=== PATIENT | female | born 1985 | race Caucasian/White ===

== ENCOUNTER 2018-06-17 05:42 | Outpatient (CLI) | payer SELFPAY ==
[~2018-06-17] VITALS: Ht 170.2 cm; Wt 136.1 kg
[2018-06-17] MEDS ORDERED: SERT50TA9 PO (14:08)
[2018-06-17] MEDS ORDERED: OMEP20TA7 PO (14:08)
== END 2018-06-17 14:09 | disposition home or self-care (01) ==
LOC: PREOP 05:42
PROVIDERS: ATTEND Surgery
DX: Z01.818 Encounter for other preprocedural examination (principal)

== ENCOUNTER 2018-06-22 08:11 | Day surgery (SDC) | payer OTHER ==
[~2018-06-22] VITALS: Ht 170.2 cm; Wt 136.1 kg
[~2018-06-22 08:11] MED LIST: OMEP20TA7 PO; SERT50TA9 PO
[2018-06-22] MEDS ORDERED: NS IV 500 ML 500 ML IV PRN (08:26)
[2018-06-22] MEDS ORDERED: fentaNYL INJECTION 100 MCG/2 ML AMP IVP ONE (08:30)
[2018-06-22] MEDS ORDERED: MIDAZOLAM 2 MG/2 ML (VERSED) VIAL IVP ONE (08:30)
[2018-06-22] MEDS ORDERED: NS IV 500 ML 500 ML ONE (08:34)
[2018-06-22 08:45] VITALS: BP 117/78
--- NOTE | 2018-06-22 08:49 | History & Physicial ---
History of Present Illness History of Present Illness Reason for visit/HPI to undergo an upper endoscopy regarding symptoms of gastroesophageal reflux disease Date of Admission 06/22/18 Date Seen by a Provider: Jun 22, 2018 Time Seen by a Provider: 08:48 I consulted on this patient on 06/22/18 08:48 Attending Physician Karely Wrad MD Admitting Physician No,Local Physician Consult Allergies and Home Medications Allergies Coded Allergies: Sulfa (Sulfonamide Antibiotics) (Verified Allergy, Unknown, RASH, 06/17/18) acetaminophen (Verified Allergy, Unknown, headache, 06/17/18) oxycodone (Verified Allergy, Unknown, headache, 06/17/18) Home Medications Omeprazole Unknown Strength Tablet.dr, 1 TAB PO DAILY, (Reported) Sertraline HCl Unknown Strength Tablet, 1 TAB PO DAILY, (Reported) Patient Home Medication List Home Medication List Reviewed: Yes Past Iwvgklo-Ydnzms-Gzxmnl Hx Patient Social History Marrital Status: Alcohol Beverage of Choice: Wine Recent Foreign Travel: No Contact w/other who traveled: No Recent Hopitalizations: No Seasonal Allergies Seasonal Allergies: No Surgeries Yes Tubal Ligation Respiratory No Cardiovascular No Neurological No Reproductive System Hx Reproductive Disorders: No Gastrointestinal Yes Gastroesophageal Reflux Endocrine History of Endocrine Disorders: No Psychosocial Behavioral Health Disorders: Depression Review of Systems Constitutional: no symptoms reported EENTM: no symptoms reported Respiratory: no symptoms reported Cardiovascular: no symptoms reported Gastrointestinal: see HPI Genitourinary: no symptoms reported Musculoskeletal: no symptoms reported Skin: no symptoms reported Psychiatric/Neurological: No Symptoms Reported Physical Exam Vital Signs Capillary Refill : Height, Weight, BMI Height: 5'7.00" Weight: 300lbs. 0.0oz. [id number]; 47.0 BMI Method: General Appearance: No Apparent Distress Neck: Normal Inspection Respiratory: Lungs Clear Cardiovascular: Regular Rate, Rhythm Gastrointestinal: Non Tender, Soft Extremity: Normal Inspection Neurologic/Psychiatric: Alert, Oriented x3 Skin: Warm/Dry Assessment/Plan Assessment and Plan lady with symptoms of gastroesophageal reflux disease. 4 upper endoscopy Admission Diagnosis Admission Status: Other (Outpt Proc) KARELY WARD MD Jun 22, 2018 08:49
--- NOTE | 2018-06-22 08:50 | Conscious Sedation/ASA ---
Conscious Sedation Pre-Proced Time 08:50 ASA Score 2 For ASA 3 and 4: Consider anesthesia and medical clearance. Also, for patients with a history of failed moderate sedation consider anesthesia. Airway Lungs Heart ASA score ASA 1: a normal healthy patient ASA 2: a patient with a mild systemic disease (mid diabetes, controlled hypertension, obesity ASA 3: a patient with a severe systemic disease that limits activity (angina , COPD, prior Myocardial infarction) ASA 4: a patient with an incapacitating disease that is a constant threat to life (CHF, renal failure) ASA 5: a moribund patient not expected to survive 24 hrs. (ruptured aneurysm) ASA 6: a declared brain patient whose organs are being harvested. For emergent operations, add the letter E after the classification Mallampati Classification Grade 1 Sedation Plan Discussed options with patient/fam The patient is an appropriate candidate to undergo the planned procedure, sedation, and anesthesia. The patient immediately re-assessed prior to indication. KARELY WARD MD Jun 22, 2018 08:50
[2018-06-22] MEDS ORDERED: fentaNYL INJECTION 100 MCG/2 ML AMP ONE (09:32)
[2018-06-22] MEDS ORDERED: MIDAZOLAM 2 MG/2 ML (VERSED) VIAL ONE ×3 (09:32→09:33)
[2018-06-22] MEDS ORDERED: HURRICAINE EXT TUBE (BENZOCAINE) ONE (09:33)
[2018-06-22] MEDS ORDERED: HURRICAINE EXT TUBE (BENZOCAINE) XX ONE (10:00)
--- NOTE | 2018-06-22 10:00 | Endo Procedure Record ---
Endo Procedure Report Date of Procedure Last Colonoscopy: Yes Jun 22, 2018 Surgeon (s) KARELY WARD MD Post Procedure/Op Diagnosis grade 2 esophagitis 3 mm, chronic prepyloric ulcer Duodenitis Procedure Performed EGD with antral biopsy for H. pylori Description of Procedure Anesthesia Type: Conscious Sedation Specimen(s) collected/removed antral mucosa Description of the Procedure Indication for the procedure: This lady came in for an upper endoscopy to evaluate symptoms of gastroesophageal reflux. Informed consent was obtained after reviewing the procedure in detail. Description of the procedure: She was placed in left lateral decubitus position and her vital signs were monitored. Conscious sedation was achieved using Versed and fentanyl. The flexible gastroscope was introduced down the esophagus , past the stomach, into the proximal duodenum. Findings: Esophagus: Grade 2 esophagitis with a short hiatal hernia. Stomach: A 3 mm, chronic prepyloric ulcer was found. Photodocumentation and biopsy for H. pylori were obtained. Duodenum: Changes of duodenitis were found along the first part. She tolerated the procedure well and was taken back to the nursing area in a stable condition. Impression: Symptoms of reflux disease. Grade 2 esophagitis. Chronic prepyloric ulcer and duodenitis. H. pylori status pending. KARELY WARD MD Jun 22, 2018 10:00
--- NOTE | 2018-06-22 10:02 | Discharge Inst-Simple/Standard ---
Discharge Inst-Standard Discharge Medications New, Converted or Re-Newed RX: Other Patient Instructions/Follow Up Plan of Care/Instructions/FU: increase omeprazole to twice a day. Please call for Carafate 1 g 3 times a day for 10 days with no refill to her pharmacy. Please schedule a gallbladder ultrasound as an outpatient Activity as Tolerated: Yes Discharge Diet: No Restrictions KARELY WARD MD Jun 22, 2018 10:02
[2018-06-22 10:20] VITALS: BP 124/83
[2018-06-22 10:50] VITALS: BP 118/71
[2018-06-22 11:15] VITALS: BP 118/71
== END 2018-06-22 11:15 | disposition home or self-care (01) ==
LOC: ENDO 08:11
PROVIDERS: ATTEND Surgery
DX: K21.0 Gastro-esophageal reflux disease with esophagitis (principal); K25.9 Gastric ulcer, unspecified as acute or chronic, without hemorrhage or perforation; K29.80 Duodenitis without bleeding; Z88.2 Allergy status to sulfonamides; Z88.5 Allergy status to narcotic agent; Z88.6 Allergy status to analgesic agent
CPT/HCPCS: 84703

== ENCOUNTER → 2018-07-06 | Outpatient (CLI) | payer OTHER | LOC: RAD 08:04 | PROVIDERS: ATTEND Surgery | DX: R10.11 Right upper quadrant pain (principal); Z53.8 Procedure and treatment not carried out for other reasons ==

== ENCOUNTER → 2018-07-28 | Outpatient (CLI) | payer OTHER ==
--- NOTE | 2018-07-28 11:55 | Diagnostic Imaging Report ---
EXAM: RIGHT UPPER QUADRANT ULTRASOUND DATE: July 28, 2018. COMPARISON: None. INDICATION: 33-year-old female, right upper quadrant abdominal pain. PROCEDURE: Two-dimensional grayscale and color doppler ultrasound examination of the right upper quadrant is performed. FINDINGS: Liver: There are limitations of visualization of the entire liver. The outer liver contours are not grossly nodular. There is no demonstrated solid or cystic liver mass. Bile ducts and gallbladder: There is no pericholecystic fluid, gallbladder wall thickening or gallstones. The gallbladder wall measures 0.2 cm. There is no intrahepatic or extrahepatic biliary ductal dilation. The common bile duct measures 0.4 cm. Right kidney: Unremarkable right kidney. No hydronephrosis. The right kidney measures 12.0 cm x 6.6 cm x 7.4 cm. Pancreas: The pancreas is not well seen. IMPRESSION: 1. The pancreas is not well seen. 2. No evidence of cholelithiasis or acute cholecystitis. 3. No biliary ductal dilation. 4. Somewhat limited assessment of the liver without demonstrated abnormality. Dictated by: Dictated on workstation # [id number]
== END ==
LOC: RAD 08:53
PROVIDERS: ATTEND Surgery
DX: R10.11 Right upper quadrant pain (principal)
CPT/HCPCS: 76705

== ENCOUNTER 2018-10-01 05:40 | Outpatient (CLI) | payer OTHER ==
[~2018-10-01] VITALS: Ht 170.2 cm; Wt 136.1 kg
[2018-10-01] MEDS ORDERED: PARO-49 PO ×2 (10:48)
[2018-10-01] MEDS ORDERED: OMEP20CA12 PO ×2 (10:48)
== END 2018-10-01 12:33 ==
LOC: PREOP 05:40
PROVIDERS: ATTEND Surgery
DX: Z01.818 Encounter for other preprocedural examination (principal)

== ENCOUNTER 2018-10-05 09:36 | Day surgery (SDC) | payer OTHER ==
[~2018-10-05] VITALS: Ht 170.2 cm; Wt 136.1 kg
[~2018-10-05 09:36] MED LIST changes: +OMEP20CA12 PO; +PARO-49 PO
[2018-10-05] MEDS ORDERED: NS IV 500 ML 500 ML ONE (09:41)
[2018-10-05] MEDS ORDERED: NS IV 500 ML 500 ML IV PRN (10:08)
[2018-10-05 10:13] VITALS: BP 125/80
[2018-10-05] MEDS ORDERED: fentaNYL INJECTION 100 MCG/2 ML AMP IVP ONE (10:15)
[2018-10-05] MEDS ORDERED: MIDAZOLAM 2 MG/2 ML (VERSED) VIAL IVP ONE (10:15)
--- NOTE | 2018-10-05 11:12 | History & Physicial ---
History of Present Illness History of Present Illness Reason for visit/HPI to undergo colonoscopy regarding rectal bleeding Date of Admission 10/05/18 Date Seen by a Provider: Oct 05, 2018 Time Seen by a Provider: 11:11 I consulted on this patient on 10/05/18 11:08 Attending Physician Karely Rajan MD Admitting Physician Yanet Matos MD Consult Allergies and Home Medications Allergies Coded Allergies: Sulfa (Sulfonamide Antibiotics) (Verified Allergy, Mild, RASH, 10/01/18) acetaminophen (Verified Allergy, Mild, headache, 10/01/18) oxycodone (Verified Allergy, Mild, headache, 10/01/18) Home Medications Omeprazole 20 Mg Capsule.dr, 20 MG PO BID, (Reported) Paroxetine HCl 20 Mg Tablet, 20 MG PO DAILY, (Reported) Patient Home Medication List Home Medication List Reviewed: Yes Past Fnteejs-Eepdzf-Jclife Hx Patient Social History Marrital Status: single Employed/Student: student, full-time Alcohol Use: Occasionally Uses Number of Drinks Today: Alcohol Beverage of Choice: Wine Recreational Drug Use: No Smoking Status: Never a Smoker 2nd Hand Smoke Exposure: No Recent Foreign Travel: No Contact w/other who traveled: No Recent Hopitalizations: No Seasonal Allergies Seasonal Allergies: Yes Surgeries Yes (CS X3, EGD, TONGUE (TONGUE TIED)) Tubal Ligation Respiratory No Cardiovascular No Neurological No Reproductive System Hx Reproductive Disorders: No Sexually Transmitted Disease: No HIV/AIDS: No Genitourinary No Gastrointestinal Yes Gastroesophageal Reflux, Chronic Constipation Musculoskeletal No Endocrine History of Endocrine Disorders: No HEENT History of HEENT Disorders: No Cancer No Psychosocial History of Psychiatric Problem: Yes Behavioral Health Disorders: Anxiety Integumentary History of Skin or Integumenta: No Skin/Integumentary Disorders: Eczema Blood Transfusions History of Blood Disorders: No Adverse Reaction to a Blood Tr: No (N/A) Review of Systems Constitutional: no symptoms reported EENTM: no symptoms reported Respiratory: no symptoms reported Cardiovascular: no symptoms reported Gastrointestinal: see HPI Genitourinary: no symptoms reported Musculoskeletal: no symptoms reported Skin: no symptoms reported Psychiatric/Neurological: No Symptoms Reported Physical Exam Vital Signs Vital Signs - First Documented 10/05/18 10:13 Temp 97.9 Pulse 83 Resp 20 B/P (MAP) 125/80 (95) Pulse Ox 95 O2 Delivery Room Air Capillary Refill : Height, Weight, BMI Height: 5'7.00" Weight: 300lbs. 0.0oz. 136.611955ek; 47.0 BMI Method: General Appearance: No Apparent Distress Neck: Normal Inspection Respiratory: Lungs Clear Cardiovascular: Regular Rate, Rhythm Gastrointestinal: Non Tender, Soft Rectal: Deferred Neurologic/Psychiatric: Alert, Oriented x3 Skin: Warm/Dry Assessment/Plan Assessment and Plan lady with rectal bleeding. No family history of polyps and colon cancer. For colonoscopy Admission Diagnosis Admission Status: Other (Outpt Proc) KARELY RAJAN MD Oct 05, 2018 11:12
--- NOTE | 2018-10-05 11:12 | Conscious Sedation/ASA ---
Conscious Sedation Pre-Proced Time 11:12 ASA Score 2 For ASA 3 and 4: Consider anesthesia and medical clearance. Also, for patients with a history of failed moderate sedation consider anesthesia. Airway Lungs Heart ASA score ASA 1: a normal healthy patient ASA 2: a patient with a mild systemic disease (mid diabetes, controlled hypertension, obesity ASA 3: a patient with a severe systemic disease that limits activity (angina , COPD, prior Myocardial infarction) ASA 4: a patient with an incapacitating disease that is a constant threat to life (CHF, renal failure) ASA 5: a moribund patient not expected to survive 24 hrs. (ruptured aneurysm) ASA 6: a declared brain- patient whose organs are being harvested. For emergent operations, add the letter E after the classification Mallampati Classification Grade 1 Sedation Plan Discussed options with patient/fam The patient is an appropriate candidate to undergo the planned procedure, sedation, and anesthesia. The patient immediately re-assessed prior to indication. KARELY WARD MD Oct 05, 2018 11:12
[2018-10-05] MEDS ORDERED: fentaNYL INJECTION 100 MCG/2 ML AMP ONE ×2 (11:29→12:02)
[2018-10-05] MEDS ORDERED: MIDAZOLAM 2 MG/2 ML (VERSED) VIAL ONE ×4 (11:29)
--- NOTE | 2018-10-05 12:06 | Endo Procedure Record ---
Endo Procedure Report Date of Procedure Last Colonoscopy: No Oct 05, 2018 Surgeon (s) KARELY WARD MD Post Procedure/Op Diagnosis internal hemorrhoids Procedure Performed colonoscopy to cecum Description of Procedure Anesthesia Type: Conscious Sedation Specimen(s) collected/removed None Description of the Procedure Indication for the procedure: This lady came in for colonoscopy to evaluate intermittent rectal bleeding. Informed consent was obtained after reviewing the procedure in detail. Description of the procedure: She was placed in left lateral decubitus position and her vital signs were monitored. Conscious sedation was achieved using Versed and fentanyl. Digital rectal examination was unremarkable. The colonoscope was then introduced into the rectum and advanced all the way up to the cecum. The quality of bowel preparation was excellent. The scope was then withdrawn slowly and the mucosa examined in a systematic fashion. Finding: Internal hemorrhoids, the source of her bleeding. No polyps were found. She tolerated the procedure well and was taken back to the nursing area in a stable condition. Impression: Rectal bleeding due to internal hemorrhoids. Recommend conservative therapy. Copy Copies To 1: ALAN WYATT MD, XAVIER M MD Oct 05, 2018 12:06
--- NOTE | 2018-10-05 12:16 | Discharge Inst-Simple/Standard ---
Discharge Inst-Standard Discharge Medications New, Converted or Re-Newed RX: Other Patient Instructions/Follow Up Plan of Care/Instructions/FU: stool softeners as needed. Follow-up with Dr. Matos to address chronic constipation Activity as Tolerated: Yes Discharge Diet: No Restrictions KARELY WARD MD Oct 05, 2018 12:16
[2018-10-05 12:30] VITALS: BP 119/65
[2018-10-05 13:02] VITALS: BP 125/79
[2018-10-05 13:06] VITALS: BP 125/79
== END 2018-10-05 13:05 | disposition home or self-care (01) ==
LOC: ENDO 09:36
PROVIDERS: ATTEND Surgery
DX: K64.8 Other hemorrhoids (principal); Z88.2 Allergy status to sulfonamides; Z88.5 Allergy status to narcotic agent; K21.9 Gastro-esophageal reflux disease without esophagitis; K59.09 Other constipation; F41.9 Anxiety disorder, unspecified; Z79.899 Other long term (current) drug therapy

== ENCOUNTER 2018-10-07 15:04 | Emergency (ER) | payer SELFPAY ==
[~2018-10-07] VITALS: Ht 170.2 cm; Wt 136.1 kg
[2018-10-07] MEDS ORDERED: MECLIZINE 25 MG (ANTIVERT) TAB PO ONE (15:30)
--- NOTE | 2018-10-07 15:55 | ED General ---
General Chief Complaint: Dizziness/Syncope Stated Complaint: DIZZINESS, NAUSEA Nursing Triage Note: PT PRESENTS TO ED WITH COMPLAINTS OF INTERMITTENT DIZZINESS X 2 MONTHS THAT GOT WORSE TODAY AROUND 1100. PT REPORTS SHE HAS NOT SEEN ANYONE FOR HER DIZZINESS BEFORE. Nursing Sepsis Screen: No Definite Risk Source of Information: Patient Exam Limitations: No Limitations History of Present Illness Date Seen by Provider: Oct 07, 2018 Time Seen by Provider: 15:27 Initial Comments 33-year-old female who presents to the emergency room with complaints of intermittent dizziness for the past 2 months that started to become worse around 1100, she has not been seen and evaluated for her dizziness before this time. She reports that the dizziness becomes worse with turning her head from side to side or back to front. She also reports nausea along with her dizziness , denies vomiting. Allergies and Home Medications Allergies Coded Allergies: Sulfa (Sulfonamide Antibiotics) (Verified Allergy, Mild, RASH, 10/01/18) acetaminophen (Verified Allergy, Mild, headache, 10/01/18) oxycodone (Verified Allergy, Mild, headache, 10/01/18) Home Medications Omeprazole 20 Mg Capsule.dr, 20 MG PO BID, (Reported) Paroxetine HCl 20 Mg Tablet, 20 MG PO DAILY, (Reported) Past Nupasby-Rkxwea-Yjnmrh Hx Patient Social History Alcohol Use: Regular Use Number of Drinks Today: HH Alcohol Beverage of Choice: Wine Recreational Drug Use: No Smoking Status: Never a Smoker 2nd Hand Smoke Exposure: No Recent Foreign Travel: No Contact w/Someone Who Travel: No Recent Infectious Disease Expo: No Recent Hopitalizations: No Physical Abuse: No Sexual Abuse: No Mistreated: No Fear: No Seasonal Allergies Seasonal Allergies: Yes Past Medical History Surgeries: Yes (CS X3, EGD, TONGUE (TONGUE TIED)) Tubal Ligation Respiratory: No Cardiac: No Neurological: No Reproductive Disorders: No Sexually Transmitted Disease: No HIV/AIDS: No Genitourinary: No Gastrointestinal: Yes Gastroesophageal Reflux, Chronic Constipation Musculoskeletal: No Endocrine: No HEENT: No Cancer: No Psychosocial: Yes Anxiety Integumentary: No Eczema Blood Disorders: No Adverse Reaction/Blood Tranf: No (N/A) Physical Exam Vital Signs Vital Signs - First Documented 10/07/18 15:15 Temp 97.3 Pulse 94 Resp 18 B/P (MAP) 97/74 (82) Pulse Ox 97 Capillary Refill : Less Than 3 Seconds Height, Weight, BMI Height: 5'7.00" Weight: 300lbs. 0.0oz. [id number]; 47.0 BMI Method:Stated Progress/Results/Core Measures Suspected Sepsis Recent Fever Within 48 Hours: No Infection Criteria Present: None New/Unexplained Altered Menta: No Sepsis Screen: No Definite Risk SIRS Temperature:97.3 Pulse: 94 Respiratory Rate: 18 Laboratory Tests 10/07/18 16:29: White Blood Count 11.4H Blood Pressure 97 /74 Mean: 82 Laboratory Tests 10/07/18 16:29: Creatinine 0.81, Platelet Count 404H, Total Bilirubin 0.2 Results/Orders Lab Results Laboratory Tests Test 10/07/18 16:29 10/07/18 17:00 Range/Units White Blood Count 11.4 H 4.3-11.0 10^3/uL Red Blood Count 4.88 4.35-5.85 10^6/uL Hemoglobin 13.7 11.5-16.0 G/DL Hematocrit 42 35-52 % Mean Corpuscular Volume 85 80-99 FL Mean Corpuscular Hemoglobin 28 25-34 PG Mean Corpuscular Hemoglobin Concent 33 32-36 G/DL Red Cell Distribution Width 13.8 10.0-14.5 % Platelet Count 404 H 130-400 10^3/uL Mean Platelet Volume 8.4 7.4-10.4 FL Neutrophils (%) (Auto) 67 42-75 % Lymphocytes (%) (Auto) 24 12-44 % Monocytes (%) (Auto) 7 0-12 % Eosinophils (%) (Auto) 1 0-10 % Basophils (%) (Auto) 0 0-10 % Neutrophils # (Auto) 7.6 1.8-7.8 X 10^3 Lymphocytes # (Auto) 2.8 1.0-4.0 X 10^3 Monocytes # (Auto) 0.8 0.0-1.0 X 10^3 Eosinophils # (Auto) 0.2 0.0-0.3 10^3/uL Basophils # (Auto) 0.0 0.0-0.1 10^3/uL Sodium Level 137 135-145 MMOL/L Potassium Level 4.0 3.6-5.0 MMOL/L Chloride Level 104 98-107 MMOL/L Carbon Dioxide Level 23 21-32 MMOL/L Anion Gap 10 5-14 MMOL/L Blood Urea Nitrogen 10 7-18 MG/DL Creatinine 0.81 0.60-1.30 MG/DL Estimat Glomerular Filtration Rate > 60 BUN/Creatinine Ratio 12 Glucose Level 79 70-105 MG/DL Calcium Level 9.7 8.5-10.1 MG/DL Corrected Calcium 9.5 8.5-10.1 MG/DL Total Bilirubin 0.2 0.1-1.0 MG/DL Aspartate Amino Transf (AST/SGOT) 16 5-34 U/L Alanine Aminotransferase (ALT/SGPT) 15 0-55 U/L Alkaline Phosphatase 73 40-136 U/L Total Protein 7.2 6.4-8.2 GM/DL Albumin 4.2 3.2-4.5 GM/DL Urine Color YELLOW Urine Clarity SL CLOUDY Urine pH 7 5-9 Urine Specific Shannon 1.010 L 1.016-1.022 Urine Protein NEGATIVE NEGATIVE Urine Glucose (UA) NEGATIVE NEGATIVE Urine Ketones NEGATIVE NEGATIVE Urine Nitrite NEGATIVE NEGATIVE Urine Bilirubin NEGATIVE NEGATIVE Urine Urobilinogen NORMAL NORMAL MG/DL Urine Leukocyte Esterase NEGATIVE NEGATIVE Urine RBC (Auto) NEGATIVE NEGATIVE Urine RBC NONE /HPF Urine WBC 2-5 /HPF Urine Squamous Epithelial Cells 10-25 H /HPF Urine Crystals NONE /LPF Urine Bacteria FEW H /HPF Urine Casts NONE /LPF Urine Mucus NEGATIVE /LPF Urine Culture Indicated NO My Orders Orders - ROBERT WEINER Meclizine Tablet (Antivert Tablet) (10/07/18 15:30) Ns Iv 1000 Ml (Sodium Chloride 0.9%) (10/07/18 16:15) Medications Given in ED Current Medications Medications Dose Ordered Sig/Mamie Route Start Time Stop Time Status Last Admin Dose Admin Meclizine HCl 50 mg ONCE ONCE PO 10/07/18 15:30 10/07/18 15:31 DC 10/07/18 15:43 50 MG Vital Signs/I&O 10/07/18 15:15 Temp 97.3 Pulse 94 Resp 18 B/P (MAP) 97/74 (82) Pulse Ox 97 Capillary Refill : Less Than 3 Seconds Blood Pressure Mean: 82 Departure Impression Primary Impression: Vertigo Disposition: 01 HOME, SELF-CARE Condition: Stable/Unchanged Departure-Patient Inst. Decision time for Depature: 17:43 Referrals: ALAN WYATT MD (PCP/Family) Primary Care Physician Patient Instructions: Vertigo (a Type of Dizziness) (DC) Add. Discharge Instructions: Take medications as directed. You may use [id number] meclizine as directed by the bottle for dizziness. You may perform the maneuvers at home that we tried in the emergency room to help the vertigo. Follow-up with your primary care provider within 1 week for recheck. Return back to the emergency room for worsening symptoms or concerns as needed. All discharge instructions reviewed with patient and/or family. Voiced understanding. Scripts Ondansetron HCl (Zofran) 4 Mg Tab 4 MG PO Q4H, #14 TAB Prov: ROBERT WEINER 10/07/18 ROBERT WEINER Oct 07, 2018 15:55
[2018-10-07] MEDS ORDERED: NS IV 1000 ML 1,000 ML IV SCH (16:15)
[2018-10-07 16:46] LABS: BASOPHILS % (AUTO) 0 % (0-10); EOSINOPHILS # (AUTO) 0.2 10^3/uL (0.0-0.3); EOSINOPHILS % (AUTO) 1 % (0-10); HEMATOCRIT 42 % (35-52); HEMOGLOBIN 13.7 G/DL (11.5-16.0); LYMPHOCYTES # (AUTO) 2.8 X 10^3 (1.0-4.0); LYMPHOCYTES % (AUTO) 24 % (12-44); MEAN CORPUSCULAR HEMOGLOBIN 28 PG (25-34); MEAN CORPUSCULAR HGB CONC 33 G/DL (32-36); MEAN CORPUSCULAR VOLUME 85 FL (80-99); MEAN PLATELET VOLUME 8.4 FL (7.4-10.4); MONOCYTES # (AUTO) 0.8 X 10^3 (0.0-1.0); MONOCYTES % (AUTO) 7 % (0-12); NEUTROPHILS # (AUTO) 7.6 X 10^3 (1.8-7.8); NEUTROPHILS % (AUTO) 67 % (42-75); PLATELET COUNT 404 10^3/uL (130-400); RED CELL DISTRIBUTION WIDTH 13.8 % (10.0-14.5); WHITE BLOOD COUNT 11.4 10^3/uL (4.3-11.0)
[2018-10-07 17:01] LABS: ALANINE AMINOTRANSFERASE 15 U/L (0-55); ALBUMIN 4.2 GM/DL (3.2-4.5); ALKALINE PHOSPHATASE 73 U/L (40-136); BILIRUBIN,TOTAL 0.2 MG/DL (0.1-1.0); BUN/CREATININE RATIO 12; CALCIUM 9.7 MG/DL (8.5-10.1); CARBON DIOXIDE 23 MMOL/L (21-32); CHLORIDE 104 MMOL/L (98-107); CREATININE SERUM 0.81 MG/DL (0.60-1.30); GFR ESTIMATED > 60; GLUCOSE 79 MG/DL (70-105); SODIUM 137 MMOL/L (135-145); TOTAL PROTEIN 7.2 GM/DL (6.4-8.2)
[2018-10-07 17:18] LABS: BILIRUBIN,URINE NEGATIVE (NEGATIVE); COLOR,URINE YELLOW; GLUCOSE, URINE (UA) NEGATIVE (NEGATIVE); KETONES,URINE NEGATIVE (NEGATIVE); LEUKOCYTE ESTERASE ,URINE NEGATIVE (NEGATIVE); NITRITE,URINE NEGATIVE (NEGATIVE); PH,URINE 7 (5-9); PROTEIN,URINE NEGATIVE (NEGATIVE); UROBILINOGEN,URINE NORMAL (NORMAL)
[2018-10-07 17:31] LABS: BACTERIA,URINE FEW /HPF; CLARITY,URINE SL CLOUDY
[2018-10-07] MEDS ORDERED: ONDN4T PO (17:44)
[2018-10-07 17:56] VITALS: BP 102/73
== END 2018-10-07 17:56 | disposition home or self-care (01) ==
LOC: EDUNIT# 15:04 → ER 15:07
DX: R42 Dizziness and giddiness (principal); F41.9 Anxiety disorder, unspecified; K21.9 Gastro-esophageal reflux disease without esophagitis; Z88.2 Allergy status to sulfonamides; Z88.6 Allergy status to analgesic agent; Z87.19 Personal history of other diseases of the digestive system; Z88.5 Allergy status to narcotic agent; Z98.51 Tubal ligation status
CPT/HCPCS: 36415; 80053; 81000; 85025